=== PATIENT | female | born 1955 | race Caucasian/White ===

== ENCOUNTER 2017-01-31 12:45 | Emergency (ER) | payer BC ==
--- NOTE | 2017-01-31 13:21 | EDPHY ---
H & P Time Seen by Provider: 01/31/17 13:14 HPI/ROS: CHIEF COMPLAINT: Left great toe injury HISTORY OF PRESENT ILLNESS: 61-year-old female presents to the emergency department with injury to her left great toe. The patient was walking down some stairs at her daughter's home and missed the last step and sprained her left great toe. The incident happened last night. She did not hit her head or lose consciousness. ROS: denies numbness or tingling in her toes, pain in her left ankle or knee. Past Medical/Surgical History: Crohn's disease Social History: Visiting from [place] Smoking Status: Never smoked Physical Exam: Examination of the right great toe reveals no swelling. There is some ecchymosis noted over the proximal and mid phalanx of the right great toe. She has pain with palpation especially along the 1st metatarsal and into the 1st MTP joint. No palpable crepitus or other bony abnormality. Full dorsi and plantar flexion. She does have limited flexion especially at the PIP joint of the right 1st great toe. No rotational deformity noted. The other toes do not appear injured. Normal sensation to light touch with normal 2 point discrimination. Strong dorsalis pedis pulse on the dorsal aspect of the right foot. Constitutional: Initial Vital Signs Temperature (C) 36.9 C 01/31/17 12:47 Heart Rate 83 01/31/17 12:47 Respiratory Rate 16 01/31/17 12:47 Blood Pressure 154/105 H 01/31/17 12:47 O2 Sat (%) 96 01/31/17 12:47 O2 Delivery Mode Room Air Allergies/Adverse Reactions: latex Allergy (Verified 01/31/17 12:52) shrimp Allergy (Verified 01/31/17 12:52) Home Medications: Medication Instructions Recorded Lipitor 01/31/17 Mercaptopurine 01/31/17 MDM/Departure - MDM Imaging Results: Imaging Impressions Foot X-Ray 01/31/17 13:18 Impression: Acute avulsion fracture of the lateral base of the right great toe proximal phalanx. Imaging: I viewed and interpreted images myself Procedures: Patient was placed in postop shoe and toes were gus-taped. This was examined post application in good placement with normal [employer]. ED Course/Re-evaluation: 61-year-old female presents to the emergency department with right great toe injury. X-rays reveal avulsion fracture off the base of the proximal phalanx. She was placed in a postop shoe and toes were ugs taped. She was given orthopedic referral. - Depart Disposition: Home, Routine, Self-Care Clinical Impression: Fracture of right foot Qualifiers: Encounter type: initial encounter Fracture type: closed Qualified Code(s): S92.901A - Unspecified fracture of right foot, initial encounter for closed fracture Condition: Good Instructions: Toe Fracture (ED) Additional Instructions: Postop shoe for comfort and support to help minimize swelling. Ibuprofen 600 mg every 8 hours as needed for pain. Weight bear as tolerated. Referrals: Jaxon Mccarty MD [Medical Doctor] - 5-7 days, call for appt. (Orthopedic surgeon on-call)
[2017-01-31 14:03] VITALS: BP 148/100; PULSE 74; RESP 15; TEMP 99; O2SAT 97
== END 2017-01-31 14:22 | disposition home or self-care (01) ==
DX: S92.411A Displaced fracture of proximal phalanx of right great toe, initial encounter for closed fracture (principal); Z91.040 Latex allergy status; W10.9XXA Fall (on) (from) unspecified stairs and steps, initial encounter; Y99.8 Other external cause status; Y93.01 Activity, walking, marching and hiking
CPT/HCPCS: L3260